=== PATIENT | female | born 1995 | race African-American/Black ===

== ENCOUNTER 2017-02-04 23:46 | Emergency (ER) | payer MEDICAID ==
[~2017-02-04] VITALS: Ht 162.6 cm; Wt 89.4 kg
[2017-02-04 23:46] VITALS: BP_SYST 137
--- NOTE | 2017-02-04 23:46 | NUR ---
Patient to [facility] for evaluation. Side rails up. Report given to CHRISTIAN DEGROOT.
--- NOTE | 2017-02-04 23:53 | NUR ---
ER MD Lawrence at bedside for medical evaluation.
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
[2017-02-05] MEDS ORDERED: ACETAMINOPHEN 500 MG TABLET PO ONE
[2017-02-05] MEDS ORDERED: IBUPROFEN 800 MG TABLET PO ONE (00:15)
--- NOTE | 2017-02-05 01:10 | NUR ---
No adverse reactions noted after medication administration. Will continue to monitor.
[2017-02-05 02:20] VITALS: BP_SYST 142
--- NOTE | 2017-02-05 02:20 | NUR ---
Patient given written and verbal discharge instructions and verbalizes understanding. ER MD discussed with patient the results and treatment provided. Patient in stable condition. ID arm band removed. Rx of Tramadol given. Patient educated on pain management and to follow up with PMD. Pain Scale 2/10 tolerable to patient. Opportunity for questions provided and answered.
== END 2017-02-05 02:20 | disposition home or self-care (01) ==
LOC: EDBD 23:46 → SED 23:46
DX: S60.221A Contusion of right hand, initial encounter (principal); R68.84 Jaw pain; Y04.2XXA Assault by strike against or bumped into by another person, initial encounter; Y93.89 Activity, other specified; Y92.89 Other specified places as the place of occurrence of the external cause; Y99.8 Other external cause status; Z88.6 Allergy status to analgesic agent
CPT/HCPCS: 70486-TC; 99284